=== PATIENT | female | born 1950 | race Caucasian/White ===

== ENCOUNTER 2018-06-17 08:39 | Inpatient (IN) | payer MEDICARE, OTHER | END 2018-06-20 14:37 | LOC: ER 08:39 → ORTHO 4S 21:01 | PROC: 0QS636Z Reposition Right Upper Femur with Intramedullary Internal Fixation Device, Percutaneous Approach (ICD-10-PCS; principal; 2018-06-18 09:25) | PROC: 0PSH04Z Reposition Right Radius with Internal Fixation Device, Open Approach (ICD-10-PCS; 2018-06-18 09:25) | DX: S52.571A Other intraarticular fracture of lower end of right radius, initial encounter for closed fracture (principal); S72.001A Fracture of unspecified part of neck of right femur, initial encounter for closed fracture; D62 Acute posthemorrhagic anemia; N39.0 Urinary tract infection, site not specified ==